=== PATIENT | male | born 1950 | race Caucasian/White ===

== ENCOUNTER 2024-07-26 06:23 | Day surgery (SDC) | payer MEDICARE ==
--- NOTE | 2024-07-21 13:21 | RAD REPORT ---
EXAMINATION: TWO VIEW CHEST XR CLINICAL INDICATION: pre op for day surgery TECHNIQUE: 2 views of the chest was performed. COMPARISON: No prior exam. FINDINGS: The lungs are well inflated and clear. The heart is upper limit of normal in size. No displaced fract ures evident. IMPRESSION: No acute or significant abnormalities.
[2024-07-21 13:25] LABS: Absolute Eosinophils 0.2 K/uL (0-0.5); Absolute Lymphocytes (CBC) 1.7 K/uL (0.7-4.9); Absolute Monocytes 0.4 K/uL (0.1-1.3); Absolute Neutrophil 4.3 K/uL (1.8-8.0); Basophils % 0.7 % (0-1.3); Eosinophils % 3.6 % (0-4.4); Hematocrit 44.4 % (39.6-49.0); Hemoglobin 14.9 g/dL (13.6-17.9); MCH 31.3 pg (27.0-35.0); MCHC 33.6 g/dL (32.0-36.0); MCV 93.2 fL (80-100); Monocytes % 6.6 % (3.3-12.3); Neutrophils % 64.1 % (41.7-73.7); Platelets 198 thou/uL (152-406); RBC Red Blood Cell Count 4.77 M/uL (4.33-5.43); Red Cell Distribution Width 13.1 % (12.1-15.2)
[2024-07-21 13:26] LABS: Protime INR 0.98
[2024-07-21 13:33] LABS: Anion Gap 7.9 mEq/L (5.0-15.0); Potassium 3.9 mEq/L (3.5-5.1)
--- NOTE | 2024-07-25 12:08 | EKG ---
Test Date: 2024-07-21 Test Time: 13:58:41 Wheel Roller: FLORINA MEASUREMENT RESULTS: Intervals: Rate: 65 DE: 152 QRSD: 102 QT: 400 QTc: 416 Clements: P: 71 DE: 152 QRS: 24 T: -11 INTERPRETIVE STATEMENTS: Normal sinus rhythm Possible Inferior infarct, age undetermined Abnormal ECG No previous ECG available for comparison Electronically Signed On 07-25-24 12:03:23 ROLLWAY WORKER by Edgar Medina
[2024-07-26] MEDS: Ringers Lactate 1,000 ML IV ONE (06:45)
[2024-07-26] MEDS ORDERED: FENTANYL CITR 100 MCG/2 ML ONE (07:04)
[2024-07-26] MEDS ORDERED: LIDOCAINE 1% MPF 5 ML VIAL ONE (07:04)
[2024-07-26] MEDS ORDERED: propofoL 200 MG/20 ML VIAL IV ONE (07:04)
[2024-07-26] MEDS ORDERED: ONDANSETRON 4 MG/2 ML VIAL ONE (07:04)
[2024-07-26] MEDS: CEFAZOLIN SODIUM 2 GM/VIAL ONE (07:45)
[2024-07-26] MEDS ORDERED: EPHEDRINE SULF 50 MG/ML VIAL ONE (07:46)
[2024-07-26] MEDS ORDERED: CODEINE 30MG/APAP 300MG TAB PO PRN (08:05)
--- NOTE | 2024-07-26 08:29 | P.OP ---
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 He was counseled on treatment options and ultimately elected to proceed with radiation therapy. SpaceOAR and fiducial markers was requested to assist in radiation simulation and planning. Procedure note: The patient was consented in the preoperative holding area before being transferred to the operative suite where general anesthesia was induced. He was given Ancef 2 g IV antimicrobial prophylaxis, and pneumoboots were provided for DVT prophylaxis. He was placed in the high lithotomy position, padded and secured to the table appropriately. His genitalia was elevated out of the perineal region using an Ioban drape. Betadine was used to prep the perineum after the transrectal ultrasound probe was placed via his anus into his rectum with ease using ultrasound visualization. A stepper device was used to hold the ultrasound and the ideal positioning, with visualization in axial and sagittal dimensions from the perineal region all the way through to the seminal vesicles. The case was begun using the ultrasound probe to visualize the left Cam prostate, and I placed a needle for the fiducial marker through the perineum into the prostate and the anterolateral aspect. I then angled the probe back to the contralateral/right side, and similarly placed a second fiducial marker needle through the perineal space into the apical anteromedial aspect of the prostate on the right. I then turned my attention to place the SpaceOAR injection needle associated with a syringe of saline, which was primed to remove any air, under ultrasound guidance via the perineum and above the rectal hump into the pre-rectal fat plane beneath Dennonvillier's space. I navigated the needle with ease through the prerectal fat plane until I reached the mid base region of the prostate as evidenced in sagittal section. I then confirmed needle was positioned within the mid zone of the prostate, and I aspirated in that region to ensure no blood or succus was obtained. I then injected a bolus of saline which did nicely diffuse through the prerectal fat plane appropriately in the midline. I then associated the SpaceOAR gel components with the needle, and then slowly and steadily injected the SpaceOAR gel components creating a beautiful distribution across the prerectal fat plane bilaterally elevating the prostate and it from the rectum. I then removed the SpaceOAR needle and surveyed the entirety of the base of the prostate to ensure the gel was symmetrically distributed, and it was. As a result, the Betadine was cleansed from his perineum after the ultrasound probe was removed, and he was taken out of the lithotomy position. He was then awakened from general anesthesia before being transferred to a stretcher. He was then transferred to the recovery room in good condition. Complications: None Discharge disposition: He should proceed with simulation planning with the radiation oncologist as soon as feasible, and then he should be scheduled for follow-up in about 6 months. Should he have any issues or increase in bothersome LUTS or problems of urologic nature associated with radiation, he may be seen sooner.
[2024-07-26 08:48] VITALS: BP 125/64; TEMP 97.2; O2SAT 95
== END 2024-07-26 09:03 | disposition home or self-care (01) ==
LOC: OR 06:23
PROVIDERS: ATTEND Urology
PROC: 0VH43YZ Insertion of Other Device into Prostate and Seminal Vesicles, Percutaneous Approach (ICD-10-PCS; principal; 2024-07-26 07:30)
DX: C61 Malignant neoplasm of prostate (principal)
CPT/HCPCS: 93005; 87088; 85025; 87086; 80048; 36415; 85610; 71046; 55874; J2704; J2003; J3010; J2405; J7120; C1889